=== PATIENT | male | born 1950 | race Caucasian/White ===

== ENCOUNTER 2016-05-11 15:05 | Outpatient (CLI) | payer BC, MEDICARE | END 2016-05-11 15:06 | disposition home or self-care (01) | LOC: HPCALD 15:05 | PROVIDERS: ATTEND Family Medicine | DX: Z12.5 Encounter for screening for malignant neoplasm of prostate (principal) | CPT/HCPCS: 36415; G0103 ==

== ENCOUNTER 2018-11-07 11:51 | Outpatient (CLI) | payer MEDICARE ==
--- NOTE | 2018-11-07 17:03 | RAD ---
RIGHT HIP TWO VIEWS: 11/07/18 No fracture or area of bony destruction was seen. The joint space is normal in width and the articula r surfaces are smooth. I am not impressed by significant amounts of arthritic change. IMPRESSION: No acute findings. POS: HOME
== END 2018-11-07 11:52 | disposition home or self-care (01) ==
LOC: BURRAD 11:51
PROVIDERS: ATTEND Physician Assistant
DX: M25.551 Pain in right hip (principal)